=== PATIENT | male | born 1955 | race Two or more races ===

== ENCOUNTER 2025-03-03 20:55 | Inpatient (IN) | payer BC, MEDICARE, SELFPAY ==
[2025-03-03 20:56] VITALS: BMI 24.2
[2025-03-03 21:19] VITALS: BP 120/82; PULSE 128; RESP 20; TEMP 36.8
--- NOTE | 2025-03-03 21:31 | EKG_ITS ---
[facility] Test Date: 2025-03-03 Pat Name: ELDER CALVILLO Department: Room: - Gender: Male Flower Arranger: : 1955 Requested By: Clement Ortiz Order Number: [id number] Reading MD: Clement Ortiz Measurements Intervals [place] Rate: 107 P: 58 IN: 140 QRS: 62 QRSD: 83 T: 69 QT: 316 QTc: 423 Interpretive Statements SINUS TACHYCARDIA LOW QRS VOLTAGE IN PRECORDIAL LEADS [QRS DEFLECTION < 1.0 mV IN CHEST LEADS] ABNORMAL RHYTHM ECG Compared to ECG 07/31/2022 17:05:21 Low QRS voltage now present Sinus rhythm no longer present /store/S0/[id number]/[id number].pdf
--- NOTE | 2025-03-03 21:32 | EDRME_ITS ---
Rapid Medical Screening Exam [facility] Arrival date/time: 03/03/25 20:55 69M with history of lymphoma (on immunotherapy at [facility]), HTN, and DM presents to ED with 1 week of black stool. Blood glucose have also been poorly controlled. Chief Complaint: GI Bleed Vital signs: Vital Signs Temperature 98.2 F 03/03/25 21:19 Pulse Rate 128 H 03/03/25 21:19 Respiratory Rate 20 03/03/25 21:19 Blood Pressure 120/82 03/03/25 21:19 Oxygen Delivery Method Room Air 03/03/25 21:19
[2025-03-03 22:04] LABS: Lactate (Lactic Acid) 3.9 mMol/L (0.4-2.0)
[2025-03-03 22:12] LABS: Basophils # (Auto) 0.1 Thou/mm3 (0.0-0.2); Basophils % (Auto) 1 % (0-2.5); Eosinophils # (Auto) 0.1 Thou/mm3 (0.0-0.5); Eosinophils % (Auto) 1 % (0-10); Hematocrit 43.8 % (41.0-53.0); Hemoglobin 14.9 g/dL (13.5-16.0); Immature Granulocytes % (Auto) 1 % (0-0); Immature Granulocytes Auto 0.08 Thou/mm3 (0.00-0.00); Lymphocytes # (Auto) 4.1 Thou/mm3 (1.0-4.8); Lymphocytes % (Auto) 42 % (10-50); Mean Corpuscular Hemoglobin 29.9 pg (25.0-35.0); Mean Corpuscular Volume 88 fL (80-100); Monocytes # (Auto) 0.8 Thou/mm3 (0.0-0.8); Monocytes % (Auto) 8 % (0-12); Neutrophils # (Auto) 4.7 Thou/mm3 (1.8-7.7); Neutrophils % (Auto) 48 % (37-80); Nucleated Red Blood Cell % 0 /100 WBC (0); Platelet Count 202 Thou/mm3 (140-440); RDW Standard Deviation 43.6 fL (35.1-43.9); Red Blood Count 4.98 Miln/mm3 (4.50-5.90); White Blood Count 9.7 Thou/mm3 (3.8-10.6)
[2025-03-03 22:48] LABS: Partial Thromboplastin Time 25.4 Seconds (22.0-36.0); Prothrombin Time 10.8 Seconds (9.0-12.2)
[2025-03-03 23:02] LABS: Alanine Aminotransferase 53 U/L (10-49); Albumin, Serum 4.9 gm/dL (3.4-4.8); Albumin/Globulin Ratio 1.6 (1.2-2.2); Alkaline Phosphatase 137 U/L (46-116); Anion Gap 9 (7-16); Aspartate Amino Transferase 36 U/L (0-34); BUN/Creatinine Ratio 18 Ratio (12-20); Bilirubin,Total 0.7 mg/dL (0.3-1.2); Blood Urea Nitrogen 21 mg/dL (9-23); Calcium 10.4 mg/dL (8.3-10.6); Calcium (Corrected) 10.4 mg/dL (8.5-10.1); Carbon Dioxide 24.4 mMol/L (20.0-31.0); Chloride 97 mMol/L (98-107); Creatinine (Component) 1.2 mg/dL (0.6-1.3); Estimated Creatinine Clearance 52.4 mL/min (>60); Globulin 3.1 gm/dL (2.3-3.5); Glucose 388 mg/dL (74-106); Osmolality,Calculated 279 (275-295); Potassium 4.8 mMol/L (3.4-5.1); Procalcitonin 0.12 ng/ml (0.0-0.49); Sodium 130 mMol/L (136-145); eGFR > 60 See Note
[2025-03-03 23:25] VITALS: BP 114/81; PULSE 96; RESP 16; TEMP 37.1; O2SAT 98
--- NOTE | 2025-03-03 23:42 | PD.EDGIBLD ---
ED GI Bleed RME/HPI General Chief complaint: GI Bleed Stated complaint: DIARRHEA FOR A WK, BLACK STOOL, HIGH BG Time Seen by Provider: 03/03/25 23:32 Arrival date/time: 03/03/25 20:55 RME / HPI RME / HPI Narrative: 03/03/25 20:55 69M with history of lymphoma (on immunotherapy at [facility]), HTN, and DM presents to ED with 1 week of black stool. Blood glucose have also been poorly controlled. Dr. Zepeda?s Main ED Evaluation: 69yo male with a history of lymphoma in remission, DM presents to the ED for a chief complaint of black stools x 1.5 weeks. Patient states he's had diarrhea with black stools for the last week and a half. He states his stomach feels bloated after he eats too much. Patient notes his blood sugars have been over 300, which is unusual for him. Patient reports associated 2 pound weight loss and decreased appetite. He denies any N/V, fever, chills or any other associated symptoms. No known allergies. Related Data Home Medications ?Medication ?Instructions ?Recorded ?Confirmed lisinopril 5 mg tablet 1 tab PO QDAY 07/06/22 07/30/22 metformin 500 mg tablet 1 tab PO BID 07/06/22 07/30/22 Previous Rx's ?Medication ?Instructions ?Recorded hydromorphone (PF) 2 mg/mL 1 mg (0.5 mL) IVP Q2H PRN SEVERE 08/04/22 injection solution PAIN 7-10 #1 mL insulin glargine 100 unit/mL 20 unit (0.2 mL) subcut BID #1 mL 08/04/22 subcutaneous solution (Lantus U-100 Insulin) linezolid in 5% dextrose in water 600 mg IV Q12HR #1 mL 08/04/22 600 mg/300 mL intravenous piggyback (Zyvox) methylprednisolone sod suc(PF) 40 60 mg (1.5 mL) IVP Q12HR #1 ea 08/04/22 mg/mL solution for injection (Solu-Medrol (PF)) piperacillin-tazobactam 3.375 3.375 g (56.25 mL) IV Q8HR #1 mL 08/04/22 gram/50 mL dextrose(iso-os) IV piggyback (Zosyn) Allergies Allergy/AdvReac Type Severity Reaction Status Date / Time No Known Allergies Allergy Verified 03/03/25 20:56 Review of Systems Review of Systems Systems Reviewed: All systems reviewed, normal except as documented Past Medical History Past Medical History CARDIAC: Negative Cardiac Disorders or Congestive Heart Failure RESPIRATORY: Negative Chronic Obstructive Pulmonary Disease (COPD) or Asthma GENITOURINARY: Negative Renal Disease ENDOCRINE: Positive Diabetes Mellitus Type 2; Negative Diabetes Mellitus Type 1 HEMATOLOGIC: Negative Sickle Cell Disease OTHER HISTORY: Positive Cancer Social History SMOKING STATUS: Never smoker SUBSTANCE USE: does not use ED Exam Narrative Physical exam: GENERAL APPEARANCE: alert and oriented x 4, well-developed, well-nourished, no acute distress VITALS: All vitals were reviewed and the pulse ox is 98% on room air, which is normal according to my interpretation. HEENT: Normocephalic, atraumatic; pupils equal, round, reactive to light; EOMI; mucous membranes pink, moist; oropharynx clear NECK: Supple LUNGS: CTABL; no wheezes, no rales, no rhonchi HEART: Regular rate, regular rhythm; normal S1, S2; no murmurs ABDOMEN: non distended; normal BS; soft, moderate LLQ tenderness, voluntary guarding, no rebound; no masses, no organomegaly, no hernia BACK: no CVA tenderness EXTREMITIES: atraumatic; no edema NEUROLOGIC: awake; alert and oriented x4; cranial nerves II-XII grossly intact; no focal sensory or motor deficits PSYCHIATRIC: appropriate mood and affect SKIN: warm, dry, normal color; no rashes Course Quality Measures none Orders Category Date Time Status CT Screening NOW Care 03/04/25 00:08 Active Qualitative Field Coordinator STAT Care 03/04/25 00:06 Active Continuous Pulse Oximetry STAT Care 03/04/25 00:06 Completed EKG (ED ONLY) *Do not use* NOW Care 03/03/25 21:32 Completed Insert IV STAT Care 03/04/25 00:06 Active Occult Blood,Stool (Nursing) NOW Care 03/03/25 21:31 Active Occult Blood,Stool (Nursing) NOW Care 03/04/25 00:06 Active Orthostatic Vitals NOW Care 03/04/25 00:[address] abdomen pelvis w con Stat Exams 03/04/25 00:08 Taken EKG (ED Only) Stat Exams 03/03/25 21:31 Draft Arterial Blood Gas Stat Lab 03/04/25 03:45 Completed Blood Culture (Lab) Stat Lab 03/03/25 21:47 Received CBC Stat Lab 03/03/25 21:52 Completed CMP [Comprehensive Metabolic Panel] Stat Lab 03/03/25 21:52 Completed Giardia Antigen, EIA, Stool* Stat Lab 03/04/25 Ordered INR [Prothrombin Time with INR] Stat Lab 03/03/25 21:52 Completed Lactate (Lactic Acid) Stat Lab 03/03/25 21:52 Completed Lactic Acid, 3 HR Stat Lab 03/04/25 01:55 Completed Lipase Stat Lab 03/04/25 00:00 Completed Magnesium Stat Lab 03/04/25 00:00 Completed Norovirus, EIA (Stool)* Stat Lab 03/04/25 Ordered PTT [Partial Thromboplastin Time] Stat Lab 03/03/25 21:52 Completed Procalcitonin Stat Lab 03/03/25 21:52 Completed Stool Culture Stat Lab 03/04/25 00:09 Ordered Stool for WBCs Stat Lab 03/04/25 00:09 Ordered Troponin I Stat Lab 03/04/25 00:00 Completed Sodium Chloride 0.9% 1000 ml [Ns] 1,000 ml Med 03/04/25 00:06 Discontinued IV 999 mls/hr Vital Signs Vital signs: Vital Signs Temperature 98.2 F 03/03/25 21:19 Pulse Rate 128 H 03/03/25 21:19 Respiratory Rate 20 03/03/25 21:19 Blood Pressure 120/82 03/03/25 21:19 Oxygen Delivery Method Room Air 03/03/25 21:19 GI Bleed MDM Narrative MDM Narrative:: Scribe Attestation: 03/03/25 Deanna Kerns am scribing for and in the presence of Dr. Zepeda. Rectal exam was performed by me, which showed minimal stool in the vault, but was noted guiaic positive stool. Patient data External records reviewed:: [facility] previous records (Per chart review, patient was admitted here on 07/30/22 for Lymphoma, Acute hypotension, Acute kidney injury, Elevated lactic acid level, Anorexia, Abnormal weight loss, Dehydration.) Clinical information provided by:: patient and spouse Social determinants that could affect healthcare access:: none Patient has the following chronic illnesses:: lymphoma, DM How is presenting disease/condition affected by chronic disease/condition?: exacerbated by Evaluation data The following diagnostics were reviewed and interpreted by me:: lab results, radiology exam(s) and EKG tracing(s) Lab and/or radiology exams considered but not ordered:: none Interpretation Summary: CBC is normal, Sodium is low at 130, Glucose is elevated at 388, Lactic Acid is elevated at 3.9, LFTs are elevated (which is chronic), Procalcitonin is normal, according to my interpretation. EKG done at 2134, sinus tachycardia, rate of 107, normal axis, no ectopy, no acute ischemia, according to my interpretation. Telerad Preliminary Report Draft Patient: ELDER CALVILLO. Record#: [id number] Birthdate: 1955 Age/Sex: 69 / M Location: [facility] Attending Dr: Ordering Physician: Date of Service: Procedure(s): Accession Number(s): cc: ~ CT scan of the abdomen and pelvis with intravenous contrast (axial sections with sagittal and coronal reformats) March 04, 2025 at 0142 hours Clinical History: Generalized abdominal pain. Comparison: None. Findings: The appendix is borderline thickened, measuring 7 mm (images 113-124/239 ) with subtle wall enhancement. No discrete periappendiceal fat stranding. There is no free fluid or free air. No evidence of bowel obstruction. There is a 1 cm hepatic hypodensity in the left lobe of liver. The gallbladder is definitely not visualized. There is a 2 x 2.5 cm cystic lesion in the gallbladder fossa. There is irregularly dilated pancreatic duct, measuring 1 cm in the proximal segment. Nonspecific perinephric fat stranding is noted bilaterally. The spleen and adrenals are unremarkable. There is mild perivesical fat stranding. Mild prostatomegaly. Degenerative changes are identified in the spine. The lung bases are clear. Impression: 1. Borderline thickened appendix subtle wall enhancement, an early acute appendicitis cannot be excluded. Recommend clinical correlation and follow-up. 2. A 2 x 2.5 cm cystic lesion in the gallbladder fossa. 3. Irregular dilated pancreatic duct measuring 1 cm in the proximal segment. Recommend further evaluation with MRCP, as clinically indicated. 4. cystitis. 5. Other findings as described above. Discussion Details: Results verbally communicated to : Dr. Zepeda at 04:09 AM 03/04/2025 Report Electronically Signed By: Modesta Grimes 03/04/2025 4:22:59 AM Medications / Prescriptions Medications or Prescriptions considered but not ordered:: none Medication administrations:: Medication Administration History Discontinued Medications Sodium Chloride (Ns) 1,000 mls @ 999 mls/hr IV .Q1H1M ONE Stop: 03/04/25 01:06 Last Infusion: 03/04/25 01:44 Dose: Infused Documented By: Admin: 03/04/25 00:43 Dose: 999 mls/hr Documented By: EF see above Consultations Consultation(s) initiated? (list below): Yes Consultation #1 (Physician, Specialty, Details): Discussed case with Dr. Beltran from Hospitalist service regarding admission. Discussed patients ED course, exam findings, labs, and radiology results. The Hospitalist agrees to accept the patient for admission. Time: 04:25 Diagnosis GI bleed differential diagnosis: Upper gastrointestinal hemorrhage, Lower gastrointestinal hemorrhage and other (C. difficile, hyperthyroidism, bacterial dysentery) Most likely diagnosis given after review of the tests above:: see clinical impression below Admission Indicated Admission indicated?: indicated Admission Request Was there a request for admission?: Yes Admission Attestation Admission request attestation: Discussed case with [] from Hospitalist service regarding admission. Discussed patients ED course, exam findings, labs, and radiology results. The Hospitalist [agrees,declines] to accept the patient for admission. Disposition Plan Disposition Plan: Admit Discharge Plan Plan Patient Disposition: Admit Acute Care w/in Hospital Discharge Disposition comment: Admitted to Dr. Beltran Prescriptions/Referrals Prescriptions/Med Rec: No Action metformin 500 mg tablet 1 tab PO BID Patient Comments: TAKE ONE TABLET BY MOUTH TWICE DAILY lisinopril 5 mg tablet 1 tab PO QDAY Patient Comments: TAKE ONE TABLET BY MOUTH EVERY DAY FOR BLOOD PRESSURE hydromorphone (PF) 2 mg/mL Solution 1 mg IVP Q2H MDD 1 PRN (Reason: SEVERE PAIN 7-10) Qty: 1 0RF insulin glargine [Lantus U-100 Insulin] 100 unit/mL Solution 20 unit subcut BID Qty: 1 0RF linezolid in dextrose 5% [Zyvox] 600 mg/300 mL Piggyback 600 mg IV Q12HR Qty: 1 0RF Solu-Medrol (PF) 40 mg/mL Recon Soln 60 mg IVP Q12HR Qty: 1 0RF Zosyn in dextrose (iso-osm) 3.375 gram/50 mL Piggyback 3.375 g IV Q8HR Qty: 1 0RF Referrals: Aggie Ca MD [Primary Care Provider] - In 1 week Problem List Clinical Impression: Melena, GI bleed Patient/Caregiver Discharge Instructions Print Language: Bahraini Stand Alone Forms: Yas Award Info., Patient Portal Info Letter
[2025-03-04] VITALS (17 sets, daily range): BP systolic 101–132; BP diastolic 68–81; PULSE 60–99; RESP 11–97; TEMP 36.2–36.8; O2SAT 94–100; BMI 22.3; BMI 24.2
--- NOTE | 2025-03-04 00:08 | XR_ITS ---
Examination: CT abdomen with intravenous contrast CT pelvis with intravenous contrast 2-D coronal reconstructions 2-D sagittal reconstructions Date and time of exam:March 04, 2025 0142 hours INDICATIONS: Diagnosis lymphoma with diarrhea black stools beginning one week ago. CTDI: vol (mGy) 13.27 DLP: (mGycm) 535 Technique: Multiple axial sections of the abdomen and pelvis have been obtained. 64 slice high-resolution scanner used. 3 mm axial sections have been obtained, post intravenous injection 60 cc [id number] 2-D sagittal, coronal reconstructions obtained. Low dose protocols were performed. One or more of the following dose reduction techniques were used; automated exposure control, adjustment of the mA and/or KV according to patient size, use of iterative reconstruction technique. Findings: Small cystic area in the gallbladder fossa 25 mm Pancreatic duct is dilated up to 12 mm Spleen is not enlarged No hydronephrosis Aorta normal size Appendix is mildly thickened but no periappendiceal inflammatory change No bowel obstruction Colonic diverticulosis Urinary bladder intact Mild prostatomegaly IMPRESSION: Borderline thickened appendix but no inflammatory change, clinical correlation advised Small cystic area in the gallbladder fossa Dilated pancreatic duct, clinical correlation advised, recommend MRCP follow-up
[2025-03-04] MEDS: SODIUM CHLORIDE 0.9% 1000 ML 1,000 ML 999 ML IV (00:43)
[2025-03-04 00:46] LABS: Lipase 65 U/L (12-53); Magnesium 1.9 mg/dL (1.6-2.6); Troponin I < 0.002 ng/mL (0.0-0.045)
[2025-03-04 01:03] LABS: Reflex Lactate? Y
[2025-03-04 02:24] LABS: Lactic Acid, 3 HR 3.2 mMol/L (0.4-2.0)
[2025-03-04 03:50] LABS: Base Excess -3 (-3-3); HCO3 22 mEq/L (20-26); Inspired Oxygen, FIO2 21 %; O2 Saturation 97 % (91-98); PCO2 36 mmHg (32.0-48.0); PO2 100 mmHg (83-108); pH, Arterial 7.39 (7.35-7.45)
[2025-03-04 03:51] LABS: Allen Test Performed/OK; Puncture Site Right Radial
--- NOTE | 2025-03-04 04:23 | PRELIM_ITS ---
CT scan of the abdomen and pelvis with intravenous contrast (axial sections with sagittal and coronal reformats) March 04, 2025 at 0142 hours Clinical History: Generalized abdominal pain. Comparison: None. Findings: The appendix is borderline thickened, measuring 7 mm (images 113-124/239 ) with subtle wall enhancement. No discrete periappendiceal fat stranding. There is no free fluid or free air. No evidence of bowel obstruction. There is a 1 cm hepatic hypodensity in the left lobe of liver. The gallbladder is definitely not visualized. There is a 2 x 2.5 cm cystic lesion in the gallbladder fossa. There is irregularly dilated pancreatic duct, measuring 1 cm in the proximal segment. Nonspecific perinephric fat stranding is noted bilaterally. The spleen and adrenals are unremarkable. There is mild perivesical fat stranding. Mild prostatomegaly. Degenerative changes are identified in the spine. The lung bases are clear. Impression: 1. Borderline thickened appendix subtle wall enhancement, an early acute appendicitis cannot be excluded. Recommend clinical correlation and follow-up. 2. A 2 x 2.5 cm cystic lesion in the gallbladder fossa. 3. Irregular dilated pancreatic duct measuring 1 cm in the proximal segment. Recommend further evaluation with MRCP, as clinically indicated. 4. cystitis. 5. Other findings as described above. Discussion Details: Results verbally communicated to : Dr. Zepeda at 04:09 AM 03/04/2025 Report Electronically Signed By: Modesta Grimes 03/04/2025 4:22:59 AM [EST]
--- NOTE | 2025-03-04 05:01 | PD.EVENT ---
Documentation for date of: 03/04/25 Event Note Event Note: A 69-year-old male presented to the ER with the chief complaint of black stool. The patient described one week of black, loose stools associated with bloating and abdominal discomfort after eating. He reports that the stools have been consistently dark throughout this time. His noted he has had frequent diarrhea during meals and only disclosed the black color yesterday. He denied vomiting, fever, dizziness, chest pain, or shortness of breath. He also denied use of NSAIDs or anticoagulants. He came to the ER due to persistent black stools and concern for GI bleeding. The patient has a history of lymphoma (in remission post-CAR T therapy), DM, and prior episodes of sepsis. Surgical history includes biliary stent placement (removed). Current medications include Metformin, Glipizide, Gabapentin, and a long-acting insulin. Social history includes no smoking, alcohol, or drug use. No known history of peptic ulcer disease. Patient last underwent endoscopy approximately one year ago during evaluation of prior pancreatic mass. In the ER, vital signs recorded as temp 98.2 F, HR 128 bpm, RR 20, BP 120/82 mmHg. Labs revealed WBC 9.7, Hb 14.9, Plt 202, INR 1.0, Na 130, K 4.8, Cl 97, BUN 21, Cr 1.2, lactic acid 3.9 -> 3.2. CT showed borderline thickened appendix with subtle wall enhancement (early appendicitis not excluded), a 2 x 2.5 cm cystic lesion in the gallbladder fossa, irregular dilated pancreatic duct (1 cm), and cystitis. Stool guaiac was positive. Admit for further evaluation and treatment.
--- NOTE | 2025-03-04 05:14 | PD.RESHP ---
Documentation for date of: 03/04/25 [facility] History of Present Illness History of present illness: The patient is a 69-year-old male with a past medical history of B-cell lymphoma, currently in remission, hypertension and diabetes mellitus presents to the ER complaining of black stools for the past 1 week. Also reported associated symptoms of abdominal discomfort and bloating after eating a little amount of food. Patient reported he has been having watery diarrhea for the week but occasionally has associated black-colored stools. is present at the bedside, who urged the patient to be evaluated in the ER. The patient denied vomiting, fever or chest pain, or shortness of breath. Patient denied use of any blood thinners or NSAIDs. In the ER initial labs showed hemoglobin 14, normal coagulation panel, normal kidney function, but lactic acid was elevated 3.9 went down to 3.2, patient was given 1 L IV bolus in the ER. CT abdomen pelvis showed early appendicitis possible, cystic lesion gallbladder fossa, irregular dilated pancreatic duct and cystitis. Patient had a positive stool occult blood test. Past medical history: B-cell lymphoma, treated with CAR-T in 2023, currently in remission. History of multiple ERCPs for pancreatic duct stent, last stent removal in 2023. Diabetes mellitus, on oral hypoglycemics but recently started on insulin takes 16 units of insulin glargine at home, was also supposed to be started on Premeal lispro insulin. Hypertension. Review of Systems Review of Systems Systems Reviewed: All systems reviewed, normal except as documented Past Medical History Past Medical History CARDIAC: Negative Cardiac Disorders or Congestive Heart Failure RESPIRATORY: Negative Chronic Obstructive Pulmonary Disease (COPD) or Asthma GENITOURINARY: Negative Renal Disease ENDOCRINE: Positive Diabetes Mellitus Type 2; Negative Diabetes Mellitus Type 1 HEMATOLOGIC: Negative Sickle Cell Disease OTHER HISTORY: Positive Cancer Social History SMOKING STATUS: Never smoker SUBSTANCE USE: does not use Exam Vital Signs Temp Pulse Resp BP Pulse Ox O2 Del Method 98.3 F 81 16 106/80 98 Room Air 03/04/25 02:27 03/04/25 02:27 03/04/25 02:27 03/04/25 02:27 03/04/25 02:27 03/04/25 02:27 Narrative Exam General: AOx3, cooperative. Skin: Intact, no cyanosis or edema noted. HEENT: Atraumatic/normocephalic, ALEJANDRA, neck supple. Heart: RRR, S1 and S2 without clicks or murmurs. Lungs: Clear on auscultation bilaterally, no difficulty breathing. Abdomen: Soft, nontender. Bowel sounds present. Vascular: Peripheral pulses palpable. Neuro: No focal neurological deficits noted. Results: Labs 03/03/25 21:52 03/03/25 21:52 Labs: Short CBC 03/03/25 Range/Units 21:52 WBC 9.7 (3.8-10.6) Thou/mm3 Hgb 14.9 (13.5-16.0) g/dL Hct 43.8 (41.0-53.0) % Plt Count 202 (140-440) Thou/mm3 BMP 03/03/25 21:52 Sodium 130 L Potassium 4.8 Chloride 97 L Carbon Dioxide 24.4 BUN 21 Creatinine 1.2 Glucose 388 H Calcium 10.4 Cardiac Enzymes 03/04/25 Range/Units 00:00 Troponin I < 0.002 (0.0-0.045) ng/mL Liver Function 03/03/25 Range/Units 21:52 Total Bilirubin 0.7 (0.3-1.2) mg/dL AST 36 H (0-34) U/L ALT 53 H (10-49) U/L Alkaline Phosphatase 137 H (46-116) U/L Albumin 4.9 H (3.4-4.8) gm/dL ABG Interpretation ABG results: 03/04/25 03:45 ABG pH 7.39 ABG pCO2 36 ABG pO2 100 ABG HCO3 22 ABG O2 Saturation 97 ABG Base Excess -3 Quality Measures Quality Measures none Advance care planning discussed with:: patient Medications Home Medications and Allergies Home Medications ?Medication ?Instructions ?Recorded ?Confirmed ?Type lisinopril 5 mg tablet 1 tab PO QDAY 07/06/22 07/30/22 History metformin 500 mg tablet 1 tab PO BID 07/06/22 07/30/22 History Allergies Allergy/AdvReac Type Severity Reaction Status Date / Time No Known Allergies Allergy Verified 03/03/25 20:56 Visit Medications Acetaminophen (Acetaminophen 325 Mg Tablet) 650 mg PO Q6H PRN PRN Reason: PAIN OR FEVER > 101 Stop: 04/03/25 05:01 Dextrose (Dextrose 50%-Water Inj 50 Ml Syringe) 25 ml IV Q15MIN PRN PRN Reason: BG 50-70 responsive npo pt Stop: 04/03/25 05:08 Dextrose (Dextrose 50%-Water Inj 50 Ml Syringe) 50 ml IV Q15MIN PRN PRN Reason: BG <50 OR BG <70 & pt unresponsive Stop: 04/03/25 05:08 Glucagon (Glucagon Inj 1 Mg Vial) 1 mg IM Q15MIN PRN PRN Reason: BG <70, and no IV access Lactated Ringer's (Lactated Ringers) 1,000 mls @ 999 mls/hr IV .Q1H1M ONE Stop: 03/04/25 06:07 Insulin Human Lispro (Insulin Lispro (Admelog) 1 Unit/0.01 Ml Unit) 0 unit SC Q6H KAMRYN; Protocol Stop: 04/03/25 05:14 Ondansetron HCl (Ondansetron Inj 2 Mg/Ml Inj 2 Ml) 4 mg IV Q6H PRN; Protocol PRN Reason: NAUSEA OR VOMITING Stop: 04/03/25 05:01 Pantoprazole Sodium (Pantoprazole Inj 40 Mg Vial) 40 mg IVP BID KAMRYN Stop: 04/03/25 08:59 Pantoprazole Sodium (Pantoprazole Inj 40 Mg Vial) 40 mg IVP X1 ONE Stop: 03/04/25 05:03 Sennosides (Senna Tablet) 2 tab PO BID PRN; Protocol PRN Reason: CONSTIPATION Stop: 04/03/25 05:01 Discontinued Medications Sodium Chloride (Ns) 1,000 mls @ 999 mls/hr IV .Q1H1M ONE Stop: 03/04/25 01:06 Last Infusion: 03/04/25 01:44 Dose: Infused Assessment & Plan Plan The patient is a 69-year-old male with a past medical history of B-cell lymphoma, currently in remission, hypertension and diabetes mellitus presents to the ER complaining of black stools for the past 1 week. Also reported associated symptoms of abdominal discomfort and bloating after eating a little amount of food. Patient did have a couple of GI bleed, gastroenterology consult to Dr. Roby pandya. #GI bleed #Diarrhea The patient gives a history of 1 week of watery diarrhea with associated occasional black stools. Hemoglobin is stable. Vitals are stable. CT abdomen pelvis showed early appendicitis possible, cystic lesion gallbladder fossa, irregular dilated pancreatic duct and cystitis. Patient had a positive stool occult blood test. ? Protonix IV twice daily ? Make patient n.p.o. ? Gastroenterology consult to Dr Ca ? IV fluid boluses ? Trend hemoglobin, transfuse hemoglobin less than 7 #Lactic acidosis Likely secondary to poor perfusion in setting of GI bleed, lactic acid downtrending after IV fluid boluses. ? Follow repeat lactic acid #Pancreatic duct dilation #Cystic lesion/fluid gallbladder fossa #History of B-cell lymphoma Patient has history of cholecystectomy, requiring cholecystostomy drain. 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 The patient finished CAR-T therapy for B-cell lymphoma last year and is in remission since then. Unremarkable physical exam, no right hypochondrium tenderness on physical exam. ? Tylenol for pain ? Continue to monitor liver enzymes. #History of diabetes mellitus Poorly controlled diabetes mellitus, requiring insulin, most recently started on glargine insulin 16 units daily and was prescribed insulin lispro premeals. ? Patient is kept n.p.o., will add to sliding scale insulin every 6 hour and glucose checks every 6 hours ? Hypoglycemic protocol in place ? Follow A1c Plan of care discussed with my attending Dr. Devin Thompson PGY2 Attending Provider Attestation/Addendum Pt was evaluated and plan formulated together with the housestaff team. I have reviewed the residents note above and agree with most of its content. Please refer to the residents note for additional details.
[2025-03-04] MEDS: RINGERS LACTATED 1000 ML 1,000 ML 999 ML IV (05:35)
[2025-03-04] MEDS: PANTOPRAZOLE INJ 40 MG VIAL IVP ×2 (05:35→20:38)
[2025-03-04] MEDS: INSULIN LISPRO (AdmeLOG) 1 UNIT/0.01 ML UNIT SC ×3 (05:35→17:31)
[2025-03-04 07:10] LABS: Lactate (Lactic Acid) 2.4 mMol/L (0.4-2.0)
[2025-03-04 07:31] LABS: Anion Gap 8 (7-16); BUN/Creatinine Ratio 19 Ratio (12-20); Blood Urea Nitrogen 19 mg/dL (9-23); Calcium 8.4 mg/dL (8.3-10.6); Carbon Dioxide 23.8 mMol/L (20.0-31.0); Chloride 107 mMol/L (98-107); Estimated Creatinine Clearance 62.9 mL/min (>60); Glucose 210 mg/dL (74-106); Osmolality,Calculated 285 (275-295); Sodium 139 mMol/L (136-145); eGFR > 60 See Note
[2025-03-04 07:34] LABS: Basophils % (Auto) 0 % (0-2.5); Eosinophils # (Auto) 0.1 Thou/mm3 (0.0-0.5); Eosinophils % (Auto) 1 % (0-10); Hematocrit 37.1 % (41.0-53.0); Hemoglobin 13.1 g/dL (13.5-16.0); Immature Granulocytes % (Auto) 1 % (0-0); Immature Granulocytes Auto 0.08 Thou/mm3 (0.00-0.00); Lymphocytes # (Auto) 2.9 Thou/mm3 (1.0-4.8); Lymphocytes % (Auto) 37 % (10-50); Mean Corpuscular HGB Conc 35.3 g/dl (31.0-37.0); Mean Corpuscular Hemoglobin 30.4 pg (25.0-35.0); Mean Corpuscular Volume 86 fL (80-100); Monocytes # (Auto) 0.7 Thou/mm3 (0.0-0.8); Monocytes % (Auto) 9 % (0-12); Neutrophils % (Auto) 52 % (37-80); Nucleated Red Blood Cell % 0 /100 WBC (0); Platelet Count 169 Thou/mm3 (140-440); RDW Standard Deviation 42.3 fL (35.1-43.9); Red Blood Count 4.31 Miln/mm3 (4.50-5.90); White Blood Count 7.8 Thou/mm3 (3.8-10.6)
[2025-03-04 07:51] LABS: Glucose Estimated Average 240 mg/dL (80-131)
[2025-03-04] MEDS: Magnesium Sulfate 4 GM Ivpb 4 GM/50 ML BAG IV (08:38)
[2025-03-04 08:57] LABS: Collection Type, Urine Clean Catch
[2025-03-04 09:14] LABS: Bilirubin,Urine Negative (Negative); Blood,Urine Negative (Negative); Clarity,Urine Clear (Clear/Hazy); Color,Urine Colorless (Lt Yel-Yel); Glucose, Urine 4+ (Negative); Ketones,Urine Negative (Negative); Leukocyte Esterase,Urine Negative (Negative); Nitrite,Urine Negative (Negative); PH,Urine 5.5 (5.0-7.0); Protein,Urine Negative (Neg - Trace); RBC,Urine 2 /hpf (0-3); Specific Gravity,Urine 1.021 (1.001-1.035); Squamous Epithelial Cell,Urine 1 /hpf (0-5); Urobilinogen,Urine Negative mg/dL (0.0-1.0); WBC,Urine 1 /hpf (0-5)
[2025-03-04 10:06] LABS: Reflex Lactate? Y
[2025-03-04] MEDS: SODIUM CHLORIDE 0.9% 1000 ML 1,000 ML 150 ML IV ×2 (10:31→18:25)
[2025-03-04 10:38] LABS: Lactic Acid, 3 HR 1.8 mMol/L (0.4-2.0)
--- NOTE | 2025-03-04 14:28 | EVENTNT_ITS ---
Documentation for date of: 03/04/25 Event Note Event Note: Attending Attestation: 69-year-old male with multiple comorbidities including B-cell lymphoma currently in remission and multiple medical comorbidities including hypertension and type 2 diabetes mellitus presented with melena. Patient states that has been having melenic stool for the past 7-9 days and upon initial presentation to the ER patient was noted to have a hemoglobin of 13. As of now, plan to continue patient on Protonix 40 mg twice daily and pending EGD. 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 Continue to monitor the patient and appreciate gastroenterology input. After gastroenterology obtains an EGD likely patient will be discharged.I reviewed above note and agree with findings and plans. I have also personally examined the patient with medicine team and went over assessment and plan with medical team including product management internship and resident physician.
--- NOTE | 2025-03-04 15:47 | PD.RESPRO ---
Documentation for date of: 03/04/25 Subjective Subjective Interval history: 03/04/2025: Overnight admission for 69-year-old male with past medical history of B-cell lymphoma in remission, hypertension, type 2 diabetes presenting with episodes of melena. Patient was admitted for likely upper GI bleed and GI was consulted. Patient seen and examined denies having any abdominal pain at this time and denies having any melena while in the hospital. Gastroenterology will obtain EGD today and depending on results may discharge. Will continue to monitor for any acute changes. Exam Vital Signs Temp Pulse Resp BP Pulse Ox O2 Del Method 98.3 F 87 18 104/68 98 Room Air 03/04/25 14:28 03/04/25 14:28 03/04/25 14:28 03/04/25 14:28 03/04/25 14:28 03/04/25 14:28 Narrative Exam General: AOx3, cooperative. Skin: Intact, no cyanosis or edema noted. HEENT: Atraumatic/normocephalic, ALEJANDRA, neck supple. Heart: RRR, S1 and S2 without clicks or murmurs. Lungs: Clear on auscultation bilaterally, no difficulty breathing. Abdomen: Soft, nontender. Bowel sounds present. Vascular: Peripheral pulses palpable. Neuro: No focal neurological deficits noted. Objective Labs 03/04/25 06:55 03/04/25 06:55 Labs: Laboratory Results - last 24 hr 03/03/25 03/04/25 03/04/25 21:52 00:00 01:55 WBC 9.7 RBC 4.98 Hgb 14.9 Hct 43.8 MCV 88 MCH 29.9 MCHC 34.0 RDW Std Deviation 43.6 Plt Count 202 Neut % (Auto) 48 Lymph % (Auto) 42 [place] % (Auto) 8 Eos % (Auto) 1 Baso % (Auto) 1 Neut # (Auto) 4.7 Lymph # (Auto) 4.1 [place] # (Auto) 0.8 Eos # (Auto) 0.1 Baso # (Auto) 0.1 Immature Gran # (Auto) 0.08 H Absolute Nucleated RBC 0.00 Immature Gran % 1 H Nucleated RBC % 0 PT 10.8 INR 1.0 APTT 25.4 Puncture Site ABG pH ABG pCO2 ABG pO2 ABG HCO3 ABG O2 Saturation ABG Base Excess FiO2 Sodium 130 L Potassium 4.8 Chloride 97 L Carbon Dioxide 24.4 Anion Gap 9 BUN 21 Creatinine 1.2 Estim Creat Clear Calc 52.4 L eGFR > 60 BUN/Creatinine Ratio [address] Glu mg/dL Hemoglobin A1c Calculated Osmolality 279 Lactic Acid 3.9 H 3.2 H Calcium 10.4 Corrected Calcium 10.4 H Magnesium 1.9 Total Bilirubin 0.7 AST 36 H ALT 53 H Alkaline Phosphatase 137 H Troponin I < 0.002 Total Protein 8.0 Albumin 4.9 H Globulin 3.1 Albumin/Globulin Ratio 1.6 Lipase 65 H Procalcitonin 0.12 Ur Collection Type Urine Color Urine Clarity Urine pH Ur Specific [place] Urine Protein Urine Glucose (UA) Urine Ketones Urine Blood Urine Nitrite Urine Bilirubin Urine Urobilinogen (Auto) Ur Leukocyte Esterase Urine RBC Urine WBC Ur Squamous Epith Cells Urine Bacteria 03/04/25 03/04/25 03/04/25 03:45 06:55 08:45 WBC 7.8 RBC 4.31 L Hgb 13.1 L Hct 37.1 L MCV 86 MCH 30.4 MCHC 35.3 RDW Std Deviation 42.3 Plt Count 169 D Neut % (Auto) 52 Lymph % (Auto) 37 [place] % (Auto) 9 Eos % (Auto) 1 Baso % (Auto) 0 Neut # (Auto) 4.0 Lymph # (Auto) 2.9 [place] # (Auto) 0.7 Eos # (Auto) 0.1 Baso # (Auto) 0.0 Immature Gran # (Auto) 0.08 H Absolute Nucleated RBC 0.00 Immature Gran % 1 H Nucleated RBC % 0 PT INR APTT Puncture Site Right Radial ABG pH 7.39 ABG pCO2 36 ABG pO2 100 ABG HCO3 22 ABG O2 Saturation 97 ABG Base Excess -3 FiO2 21 Sodium 139 Potassium 4.0 D Chloride 107 Carbon Dioxide 23.8 Anion Gap 8 BUN 19 Creatinine 1.0 Estim Creat Clear Calc 62.9 eGFR > 60 BUN/Creatinine Ratio 19 Glucose [address] Glu mg/dL 240 H Hemoglobin A1c 10.0 H Calculated Osmolality 285 Lactic Acid 2.4 H Calcium 8.4 D Corrected Calcium Magnesium Total Bilirubin AST ALT Alkaline Phosphatase Troponin I Total Protein Albumin Globulin Albumin/Globulin Ratio Lipase Procalcitonin Ur Collection Type Clean Catch Urine Color Colorless A Urine Clarity Clear Urine pH 5.5 Ur Specific [place] 1.021 Urine Protein Negative Urine Glucose (UA) 4+ A Urine Ketones Negative Urine Blood Negative Urine Nitrite Negative Urine Bilirubin Negative Urine Urobilinogen (Auto) Negative Ur Leukocyte Esterase Negative Urine RBC 2 Urine WBC 1 Ur Squamous Epith Cells 1 Urine Bacteria None 03/04/25 10:31 WBC RBC Hgb Hct MCV MCH MCHC RDW Std Deviation Plt Count Neut % (Auto) Lymph % (Auto) [place] % (Auto) Eos % (Auto) Baso % (Auto) Neut # (Auto) Lymph # (Auto) [place] # (Auto) Eos # (Auto) Baso # (Auto) Immature Gran # (Auto) Absolute Nucleated RBC Immature Gran % Nucleated RBC % PT INR APTT Puncture Site ABG pH ABG pCO2 ABG pO2 ABG HCO3 ABG O2 Saturation ABG Base Excess FiO2 Sodium Potassium Chloride Carbon Dioxide Anion Gap BUN Creatinine Estim Creat Clear Calc eGFR BUN/Creatinine Ratio Glucose Estimated Ave Glu mg/dL Hemoglobin A1c Calculated Osmolality Lactic Acid 1.8 Calcium Corrected Calcium Magnesium Total Bilirubin AST ALT Alkaline Phosphatase Troponin I Total Protein Albumin Globulin Albumin/Globulin Ratio Lipase Procalcitonin Ur Collection Type Urine Color Urine Clarity Urine pH Ur Specific [place] Urine Protein Urine Glucose (UA) Urine Ketones Urine Blood Urine Nitrite Urine Bilirubin Urine Urobilinogen (Auto) Ur Leukocyte Esterase Urine RBC Urine WBC Ur Squamous Epith Cells Urine Bacteria ABG Interpretation ABG results: 03/04/25 03:45 ABG pH 7.39 ABG pCO2 36 ABG pO2 100 ABG HCO3 22 ABG O2 Saturation 97 ABG Base Excess -3 Quality Measures Quality Measures none Advance care planning discussed with:: patient Assessment & Plan Assessment Current Active Medications: Generic Name Dose Route Start Last Admin Trade Name Casey PRN Reason Stop Dose Admin Acetaminophen 650 mg 03/04/25 08:22 Acetaminophen 325 Mg Tablet PO 04/03/25 05:01 Q6H PRN Pain 1-3 Or Fever > 100.1 Dextrose 25 ml 03/04/25 05:09 Dextrose 50%-Water Inj 50 Ml Syringe IV 04/03/25 05:08 Q15MIN PRN BG 50-70 responsive npo pt Dextrose 50 ml 03/04/25 05:09 Dextrose 50%-Water Inj 50 Ml Syringe IV 04/03/25 05:08 Q15MIN PRN BG <50 OR BG <70 & pt unresponsive Glucagon 1 mg 03/04/25 05:09 Glucagon Inj 1 Mg Vial IM Q15MIN PRN BG <70, and no IV access Sodium Chloride 1,000 mls @ 150 mls/hr 03/04/25 08:22 03/04/25 10:31 Ns IV 04/03/25 08:21 150 mls/hr .[id number] KAMRYN Administration Insulin Human Lispro 0 unit 03/04/25 05:15 03/04/25 14:31 Insulin Lispro (Admelog) 1 Unit/0.01 Ml Unit SC 04/03/25 05:14 3 unit Q6HR KAMRYN Administration Protocol Ondansetron HCl 4 mg 03/04/25 05:02 Ondansetron Inj 2 Mg/Ml Inj 2 Ml IV 04/03/25 05:01 Q6H PRN NAUSEA OR VOMITING Protocol Pantoprazole Sodium 40 mg 03/04/25 21:00 Pantoprazole Inj 40 Mg Vial IVP 04/03/25 20:59 BID KAMRYN Sennosides 2 tab 03/04/25 05:02 Senna Tablet PO 04/03/25 05:01 BID PRN CONSTIPATION Protocol Plan 69-year-old male with a past medical history of B-cell lymphoma, currently in remission, hypertension and diabetes mellitus presents to the ER complaining of black stools for the past 1 week. Also reported associated symptoms of abdominal discomfort and bloating after eating a little amount of food. Patient did have a couple of GI bleed, gastroenterology consult to Dr. Ca placed. #Likely upper GI bleed #Diarrhea, resolved #Lactic acid, resolved Patient gives a history of 1 week of watery diarrhea with associated occasional black stools. Patient states that he has followed up with Dr. Ca in the past, about 2 years ago Hemoglobin is stable. Vitals are stable. CT abdomen pelvis showed early appendicitis possible, cystic lesion gallbladder fossa, irregular dilated pancreatic duct and cystitis. Positive stool occult blood test. Plan: GI, Dr. Ca, consulted appreciate recommendations Endoscopy planned Protonix IV twice daily N.p.o. IV fluid resuscitation Transfuse hemoglobin less than 7 Patient will complete colonoscopy outpatient with Dr. Ca #Pancreatic duct dilation #Cystic lesion/fluid gallbladder fossa #History of B-cell lymphoma Patient has history of cholecystectomy, requiring cholecystostomy drain. 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 CAR-T therapy for B-cell lymphoma last year and is in remission since then. Unremarkable physical exam, no right hypochondrium tenderness on physical exam. Plan: Pain management Monitor for any acute changes in symptoms Follow-up with morning labs #Insulin-dependent type 2 diabetes Poorly controlled diabetes mellitus, requiring insulin, most recently started on glargine insulin 16 units daily and was prescribed insulin lispro premeals. A1c of 10.0 Plan: Sliding scale insulin every 6 hours Diabetic education, dietitian consulted appreciate recommendations Hospital Management: Lines: PIV Diet: N.p.o. Bowel: Not needed at this time GI prophylaxis: Protonix 40 mg IV twice daily DVT prophylaxis: SCD Dispo: Upper endoscopy for possible upper GI bleed Code: Full Patient seen and examined with attending Dr. Garcia and senior resident Dr. Scottie Flores, PGY-1 Patient examined and case discussed with the team including attending physician . Note reviewed, I agree with the care plan as documented. Mr Bagley is a 69-year-old male with a past medical history of B-cell lymphoma in remission, primary hypertension and T2DM admitted for GI bleed. Gastroenterology consult to Dr. Roby pandya, appreciate recommendations. Patient NPO in preparation for EGD, anticipate DC after endoscopy if negative. Hb trending 13s and patient remains very stable. May follow up with GI outpatient for colonoscopy. Please refer to the note above for further details. - Phong Rubin MD, PGY 2 Disclaimer: The document may contain phonetic/typographic errors due to voice recognition software. These errors are purely due to imperfections in the software program and should not be misconstrued in any way to compromise the substance of the patient's medical care during this visit.
--- NOTE | 2025-03-04 17:22 | PD.IMCONS ---
HPI Data of Consult Requesting Physician: Carla Garcia MD Primary Care Provider: Aggie Ca MD Consult Narrative Reason for consult: Melena History of present illness: 69 years old male evaluated request of the ER physician for melanotic stools and Hemoccult positive stools Presenting hemoglobin was 14.9 went down to 13.1 Patient was subsequently admitted cc:: cc: Carla Garcia MD Past Medical History Surgical History OTHER SURGICAL HX: Essential hypertension Diabetes mellitus type 2 Meds Home Medications and Allergies Home Medications ?Medication ?Instructions ?Recorded ?Confirmed ?Type lisinopril 5 mg tablet 1 tab PO QDAY 07/06/22 03/04/25 History metformin 500 mg tablet 1,000 mg PO BID 07/06/22 03/04/25 History gabapentin 300 mg capsule 300 mg PO TID 03/04/25 03/04/25 History glipizide 10 mg tablet 10 mg PO BID 03/04/25 03/04/25 History melatonin 10 mg capsule 10 mg PO HS 03/04/25 03/04/25 History ondansetron 4 mg disintegrating 4 mg PO PRN 03/04/25 03/04/25 History tablet Allergies Allergy/AdvReac Type Severity Reaction Status Date / Time No Known Allergies Allergy Verified 03/03/25 20:56 Exam Vital Signs Temp Pulse Resp BP Pulse Ox O2 Del Method 98.3 F 67 18 104/68 98 Room Air 03/04/25 14:28 03/04/25 16:00 03/04/25 14:28 03/04/25 14:28 03/04/25 14:28 03/04/25 14:28 Constitutional Comments: Alert oriented Routine Respiratory Exam Comments: Normal to auscultation Routine Abdominal Exam Comments: Soft nontender positive bowel sounds Results Labs 03/04/25 06:55 03/04/25 06:55 Labs: Short CBC 03/03/25 03/04/25 Range/Units 21:52 06:55 WBC 9.7 7.8 (3.8-10.6) Thou/mm3 Hgb 14.9 13.1 L (13.5-16.0) g/dL Hct 43.8 37.1 L (41.0-53.0) % Plt Count 202 169 D (140-440) Thou/mm3 BMP 03/03/25 03/04/25 21:52 06:55 Sodium 130 L 139 Potassium 4.8 4.0 D Chloride 97 L 107 Carbon Dioxide 24.4 23.8 BUN 21 19 Creatinine 1.2 1.0 Glucose 388 H 210 H D Calcium 10.4 8.4 D Cardiac Enzymes 03/04/25 Range/Units 00:00 Troponin I < 0.002 (0.0-0.045) ng/mL Liver Function 03/03/25 Range/Units 21:52 Total Bilirubin 0.7 (0.3-1.2) mg/dL AST 36 H (0-34) U/L ALT 53 H (10-49) U/L Alkaline Phosphatase 137 H (46-116) U/L Albumin 4.9 H (3.4-4.8) gm/dL Urine 03/04/25 Range/Units 08:45 Urine Color Colorless A (Lt Yel-Yel) Urine Clarity Clear (Clear/Hazy) Urine pH 5.5 (5.0-7.0) Ur Specific [place] 1.021 (1.001-1.035) Urine Protein Negative (Neg - Trace) Urine Glucose (UA) 4+ A (Negative) ABG Interpretation ABG results: 03/04/25 03:45 ABG pH 7.39 ABG pCO2 36 ABG pO2 100 ABG HCO3 22 ABG O2 Saturation 97 ABG Base Excess -3 Assessment and Plan Additional Assessment & Plan Additional Plan: Melena FOBT positive Plan Consent obtained for fiberoptic esophagogastroduodenoscopy with possible biopsy possible therapeutic intervention under intravenous moderate sedation IV Protonix N.p.o. Serial CBC Will follow the patient If the endoscopy does not show much endoscopically patient can be discharged home tonight to be followed as an outpatient by me
[2025-03-04 19:25] LABS: Stool for WBCs Negative (Negative)
--- NOTE | 2025-03-04 19:39 | PC.NURSE ---
Dr. Ca surgical team arrived on unit to brain picker patient for procedure.
--- NOTE | 2025-03-04 21:23 | PC.NURSE ---
Patient education given to patient. IV and telemonitor removed. Patient is able to ambulate in room with cane and family member is at bedside. Patient is showing no signs of distress. Patient is being discharged via wheelchair and private vehicle. Belongings has been accounted for.
--- NOTE | 2025-03-04 22:39 | PD.EVENT ---
Documentation for date of: 03/04/25 Event Note Event Note: Seen by Dr. Ca; altagracia to go home.
[2025-03-09 06:43] LABS: Giardia Result NOT DETECTED; Norovirus, EIA (Stool)* NOT DETECTED
== END 2025-03-04 21:35 | disposition home or self-care (01) | DRG 378 ==
LOC: SERX 03-04 04:31 → SERHOLD 03-04 05:56 → S3SX 03-04 15:35
PROVIDERS: Physician Assistant; Student in an Organized Health Care Education/Training Program; Admitting Provider Internal Medicine; Emergency Provider Emergency Medicine; PCP Specialist; Visit Provider Internal Medicine
PROC: 0DJ08ZZ Inspection of Upper Intestinal Tract, Via Natural or Artificial Opening Endoscopic (ICD-10-PCS; CPT 43239; principal; 2025-03-04 16:30)
DX: K29.71 Gastritis, unspecified, with bleeding (principal); C85.9A Non-Hodgkin lymphoma, unspecified, in remission; E87.20 Acidosis, unspecified; E11.9 Type 2 diabetes mellitus without complications; K86.89 Other specified diseases of pancreas; N30.90 Cystitis, unspecified without hematuria; I10 Essential (primary) hypertension; K37 Unspecified appendicitis; Z90.49 Acquired absence of other specified parts of digestive tract; Z79.899 Other long term (current) drug therapy; Z79.84 Long term (current) use of oral hypoglycemic drugs; Z79.4 Long term (current) use of insulin
CPT/HCPCS: 36415; 36600; 74177; 80048; 80053; 81001; 82803; 83036; 83605; 83690; 83735; 84145; 84484; 85025; 85610; 85730; 87015; 87040; 87045; 87046; 87205; 87329; 87449; 87899; 93005; 93225; 96361; 96372; 96374; 99285; A4649; J1200; J1815; J2250; J2470; J3010; J3475; J7030; J7120; Q9967

== ENCOUNTER → 2025-03-15 | Outpatient (CLI) | payer BC, SELFPAY ==
[2025-03-15 13:09] LABS: Basophils % (Auto) 1 % (0-2.5); Eosinophils # (Auto) 0.1 Thou/mm3 (0.0-0.5); Eosinophils % (Auto) 1 % (0-10); Hematocrit 43.5 % (41.0-53.0); Hemoglobin 14.7 g/dL (13.5-16.0); Immature Granulocytes % (Auto) 1 % (0-0); Immature Granulocytes Auto 0.05 Thou/mm3 (0.00-0.00); Lymphocytes # (Auto) 2.8 Thou/mm3 (1.0-4.8); Lymphocytes % (Auto) 40 % (10-50); Mean Corpuscular HGB Conc 33.8 g/dl (31.0-37.0); Mean Corpuscular Hemoglobin 30.1 pg (25.0-35.0); Mean Corpuscular Volume 89 fL (80-100); Monocytes # (Auto) 0.7 Thou/mm3 (0.0-0.8); Monocytes % (Auto) 10 % (0-12); Neutrophils # (Auto) 3.4 Thou/mm3 (1.8-7.7); Neutrophils % (Auto) 48 % (37-80); Nucleated Red Blood Cell % 0 /100 WBC (0); Platelet Count 193 Thou/mm3 (140-440); RDW Standard Deviation 44.4 fL (35.1-43.9); Red Blood Count 4.88 Miln/mm3 (4.50-5.90); White Blood Count 7.1 Thou/mm3 (3.8-10.6)
[2025-03-15 13:21] LABS: Alanine Aminotransferase 57 U/L (10-49); Albumin, Serum 4.8 gm/dL (3.4-4.8); Albumin/Globulin Ratio 1.9 (1.2-2.2); Alkaline Phosphatase 124 U/L (46-116); Anion Gap 9 (7-16); Aspartate Amino Transferase 41 U/L (0-34); BUN/Creatinine Ratio 17 Ratio (12-20); Bilirubin,Total 1.1 mg/dL (0.3-1.2); Blood Urea Nitrogen 19 mg/dL (9-23); Calcium 9.8 mg/dL (8.3-10.6); Calcium (Corrected) 9.8 mg/dL (8.5-10.1); Carbon Dioxide 27.9 mMol/L (20.0-31.0); Chloride 98 mMol/L (98-107); Creatinine (Component) 1.1 mg/dL (0.6-1.3); Globulin 2.5 gm/dL (2.3-3.5); Glucose 145 mg/dL (74-106); Osmolality,Calculated 275 (275-295); Potassium 4.4 mMol/L (3.4-5.1); Sodium 135 mMol/L (136-145); Total Protein 7.3 gm/dL (5.7-8.2); eGFR > 60 See Note
== END | disposition home or self-care (01) ==
LOC: COPL 12:05
PROVIDERS: PCP Internal Medicine; Referring Provider Specialist; Visit Provider Specialist
DX: K92.1 Melena (principal); K31.89 Other diseases of stomach and duodenum
CPT/HCPCS: 36415; 80053; 85025

== ENCOUNTER → 2025-03-30 | Outpatient (CLI) | payer BC, SELFPAY ==
[2025-03-30 14:21] LABS: Misc Send Out* See Sep Rpt
[2025-03-30 16:40] LABS: Basophils # (Auto) 0.1 Thou/mm3 (0.0-0.2); Basophils % (Auto) 1 % (0-2.5); Eosinophils # (Auto) 0.1 Thou/mm3 (0.0-0.5); Eosinophils % (Auto) 1 % (0-10); Hematocrit 43.1 % (41.0-53.0); Hemoglobin 14.9 g/dL (13.5-16.0); Immature Granulocytes % (Auto) 1 % (0-0); Immature Granulocytes Auto 0.13 Thou/mm3 (0.00-0.00); Lymphocytes # (Auto) 2.5 Thou/mm3 (1.0-4.8); Lymphocytes % (Auto) 27 % (10-50); Mean Corpuscular HGB Conc 34.6 g/dl (31.0-37.0); Mean Corpuscular Hemoglobin 29.9 pg (25.0-35.0); Mean Corpuscular Volume 87 fL (80-100); Monocytes # (Auto) 0.8 Thou/mm3 (0.0-0.8); Monocytes % (Auto) 9 % (0-12); Neutrophils # (Auto) 5.8 Thou/mm3 (1.8-7.7); Neutrophils % (Auto) 62 % (37-80); Nucleated Red Blood Cell % 0 /100 WBC (0); Platelet Count 199 Thou/mm3 (140-440); RDW Standard Deviation 43.3 fL (35.1-43.9); Red Blood Count 4.98 Miln/mm3 (4.50-5.90); White Blood Count 9.3 Thou/mm3 (3.8-10.6)
[2025-03-30 16:57] LABS: Alanine Aminotransferase 50 U/L (10-49); Albumin, Serum 4.8 gm/dL (3.4-4.8); Albumin/Globulin Ratio 1.8 (1.2-2.2); Alkaline Phosphatase 138 U/L (46-116); Anion Gap 14 (7-16); Aspartate Amino Transferase 33 U/L (0-34); BUN/Creatinine Ratio 13 Ratio (12-20); Blood Urea Nitrogen 16 mg/dL (9-23); C-Reactive Protein 1.2 mg/dL (0.0-0.9); Calcium 9.3 mg/dL (8.3-10.6); Calcium (Corrected) 9.3 mg/dL (8.5-10.1); Carbon Dioxide 26.6 mMol/L (20.0-31.0); Chloride 100 mMol/L (98-107); Creatinine (Component) 1.2 mg/dL (0.6-1.3); Globulin 2.7 gm/dL (2.3-3.5); Glucose 225 mg/dL (74-106); Osmolality,Calculated 289 (275-295); Potassium 4.1 mMol/L (3.4-5.1); Sodium 141 mMol/L (136-145); Total Protein 7.5 gm/dL (5.7-8.2); eGFR > 60 See Note
[2025-03-30 17:08] LABS: Sed Rate (ESR) 9 mm/hr (0-20)
[2025-04-06 06:38] LABS: Calprotectin, Stool* 224 mcg/g
== END | disposition home or self-care (01) ==
PROVIDERS: PCP Internal Medicine; Referring Provider Specialist; Visit Provider Specialist
DX: K92.2 Gastrointestinal hemorrhage, unspecified (principal); R19.7 Diarrhea, unspecified
CPT/HCPCS: 36415; 80053; 82784; 83993; 85025; 85652; 86140; 86364

== ENCOUNTER 2025-04-12 10:45 | Day surgery (SDC) | payer BC, SELFPAY ==
[2025-04-12] VITALS (11 sets, daily range): BP systolic 94–129; BP diastolic 63–91; PULSE 81–92; RESP 14–20; TEMP 36.4–36.6; O2SAT 97–100; BMI 24.5
[2025-04-12] MEDS: SODIUM CHLORIDE 0.9% 500 ML 500 ML 20 ML IV (12:33)
[2025-04-12] MEDS: DiphenhydrAMINE INJ 50 MG/ML VIAL 25 MG IVP (12:33)
[2025-04-12] MEDS: fentaNYL CIT INJ 50 mCg/ML AMP 2ML (ASD USE ONLY) IVP (12:36)
[2025-04-12] MEDS: MIDAZOLAM INJ 1 MG/ML VIAL 2 ML (ASD USE ONLY) 2 MG IVP (12:36)
== END 2025-04-12 13:55 | disposition home or self-care (01) ==
PROVIDERS: PCP Internal Medicine; Referring Provider Specialist; Visit Provider Specialist
PROC: 0DBE8ZX Excision of Large Intestine, Via Natural or Artificial Opening Endoscopic, Diagnostic (ICD-10-PCS; CPT 45380; principal; 2025-04-12 13:15)
DX: D12.3 Benign neoplasm of transverse colon (principal); Z80.0 Family history of malignant neoplasm of digestive organs; Z86.0101 Personal history of adenomatous and serrated colon polyps; K64.8 Other hemorrhoids
CPT/HCPCS: 45385; A4649; J1200; J2250; J3010; J7040

== ENCOUNTER → 2025-04-19 | Outpatient (CLI) | payer BC, SELFPAY ==
[2025-04-19 13:56] LABS: Calcium, Ionized 4.7 mg/dL (4.6-5.6)
[2025-04-19 14:10] LABS: Parathyroid Hormone Intact 24.6 pg/ml (18.5-88.0)
[2025-04-19 14:15] LABS: Creatinine MALB Rnd Ur 15 mg/dL (30-125); Microalbumin Creat Ratio 87 mg/gCrea (<30); Microalbumin, Random Urine 13 mg/L (0-300)
[2025-04-19 14:15] LABS: Alanine Aminotransferase 53 U/L (10-49); Albumin, Serum 4.8 gm/dL (3.4-4.8); Albumin/Globulin Ratio 1.7 (1.2-2.2); Alkaline Phosphatase 246 U/L (46-116); Anion Gap 10 (7-16); Aspartate Amino Transferase 35 U/L (0-34); BUN/Creatinine Ratio 21 Ratio (12-20); Bilirubin,Total 0.5 mg/dL (0.3-1.2); Blood Urea Nitrogen 23 mg/dL (9-23); Calcium 9.6 mg/dL (8.3-10.6); Calcium (Corrected) 9.6 mg/dL (8.5-10.1); Carbon Dioxide 29.7 mMol/L (20.0-31.0); Cardiac Risk Estimate 3.9 RATIO (4.0-6.7); Chloride 97 mMol/L (98-107); Cholesterol 151 mg/dL (132-200); Creatinine (Component) 1.1 mg/dL (0.6-1.3); Free T3 2.5 pg/mL (2.3-4.2); Free T4 (Free Thyroxine) 1.19 ng/dL (0.89-1.76); Globulin 2.9 gm/dL (2.3-3.5); Glucose 166 mg/dL (74-106); Glucose Estimated Average 203 mg/dL (80-131); HDL Cholesterol 39 mg/dL (40-60); Hemoglobin A1C 8.7 % Hgb (4.8-6.0); LDL Cholesterol,Calculated 82 mg/dL (0-130); Osmolality,Calculated 281 (275-295); Phosphorous 2.4 mg/dL (2.4-5.1); Potassium 4.2 mMol/L (3.4-5.1); Sodium 137 mMol/L (136-145); Thyroid Stimulating Hormone 1.55 uIU/mL (0.55-4.78); Total Protein 7.7 gm/dL (5.7-8.2); Triglycerides 152 mg/dL (30-150); eGFR > 60 See Note
[2025-04-19 14:18] LABS: Vitamin B12 216 pg/mL (211-911)
== END | disposition home or self-care (01) ==
LOC: COPL 13:20
PROVIDERS: PCP Internal Medicine
DX: E11.9 Type 2 diabetes mellitus without complications (principal); R79.89 Other specified abnormal findings of blood chemistry; E83.52 Hypercalcemia
CPT/HCPCS: 36415; 80053; 80061; 82043; 82306; 82330; 82570; 82607; 83036; 83735; 83970; 84100; 84439; 84443; 84481